=== PATIENT | male | born 1960 | race Asian ===

== ENCOUNTER 2018-12-11 21:54 | Emergency (ER) | payer BC ==
[2018-12-11] MEDS: FLUORESCEIN STRIP RIGHT EYE (22:48)
[2018-12-11] MEDS: TETRACAINE 0.5% 4 ML OPH RIGHT EYE (22:49)
== END 2018-12-11 23:23 | disposition home or self-care (01) ==
LOC: FTE 21:54
DX: S05.01XA Injury of conjunctiva and corneal abrasion without foreign body, right eye, initial encounter (principal); E11.9 Type 2 diabetes mellitus without complications; X58.XXXA Exposure to other specified factors, initial encounter; Y92.9 Unspecified place or not applicable; Z79.82 Long term (current) use of aspirin; Z79.84 Long term (current) use of oral hypoglycemic drugs
CPT/HCPCS: 99283

== ENCOUNTER 2019-07-02 16:20 | Observation (INO) | payer BC ==
[2019-07-02 17:36] LABS: ADD MAN DIFF? NO
[2019-07-02 17:38] LABS: WHITE BLOOD COUNT 6.9 10^3/ul (4.8-10.8)
[2019-07-02 17:38] LABS: BASOPHILS % 0.3 % (0.0-2.0); EOSINOPHILS # 0.2 10^3/ul (0.0-0.5); EOSINOPHILS % 2.6 % (0.0-7.0); HEMATOCRIT 44.3 % (42.0-52.0); HEMOGLOBIN 14.4 g/dl (14.0-18.0); LYMPHOCYTES # 1.8 10^3/ul (0.8-2.9); LYMPHOCYTES % 25.9 % (15.0-51.0); MEAN CORPUSCULAR HEMOGLOBIN 27.5 pg (29.0-33.0); MEAN CORPUSCULAR HGB CONC 32.5 g/dl (32.0-37.0); MEAN CORPUSCULAR VOLUME 84.5 fl (82.0-101.0); MEAN PLATELET VOLUME 10.5 fl (7.4-10.4); MONOCYTE # 0.5 10^3/ul (0.3-0.9); MONOCYTES % 6.8 % (0.0-11.0); NEUTROPHIL # 4.5 10^3/ul (1.6-7.5); NEUTROPHILS % 64.1 % (39.0-77.0); PLATELET COUNT 208 10^3/UL (140-415); RED BLOOD COUNT 5.24 10^6/ul (4.70-6.10); RED CELL DISTRIBUTION WIDTH 12.7 % (11.5-14.5)
[2019-07-02] MEDS: KETOROLAC 15 MG INJ IV (17:39)
[2019-07-02] MEDS: ASPIRIN 81 MG TAB PO (17:39)
[2019-07-02 18:03] LABS: ALANINE AMINOTRANSFERASE 22 IU/L (13-69); ALBUMIN 4.1 g/dl (3.3-4.9); ALBUMIN/GLOBULIN RATIO 1.24; ALKALINE PHOSPHATASE 67 IU/L (42-121); ANION GAP 9 (5-13); ASPARTATE AMINO TRANSFERASE 33 IU/L (15-46); BILIRUBIN,INDIRECT 0.6 mg/dl (0-1.1); BILIRUBIN,TOTAL 0.6 mg/dl (0.2-1.3); BLOOD UREA NITROGEN 12 mg/dl (7-20); CALCIUM 9.6 mg/dl (8.4-10.2); CARBON DIOXIDE 28 mmol/L (21-31); CHLORIDE 99 mmol/L (97-110); CREATININE 0.92 mg/dl (0.61-1.24); Estimated GFR > 60 mL/min (>60); GLUCOSE 269 mg/dl (70-220); LIPASE 126 U/L (23-300); POTASSIUM 4.2 mmol/L (3.5-5.1); SODIUM 136 mmol/L (135-144); TOTAL PROTEIN 7.4 g/dl (6.1-8.1)
[2019-07-02 18:15] LABS: B-TYPE NATRIURETIC PEPTIDE 46 PG/ML (0-125); TROPONIN-I < 0.012 ng/ml (0.000-0.120)
[2019-07-02] MEDS ORDERED: ZOLPIDEM 5 MG TAB PO (21:30)
[2019-07-02] MEDS ORDERED: ONDANSETRON 4 MG INJ IV (22:30)
[2019-07-02] MEDS ORDERED: ACETAMINOPHEN 325 MG TAB PO (22:30)
[2019-07-02] MEDS: METOPROLOL 50 MG TAB PO (22:35)
[2019-07-03 01:27] LABS: TROPONIN-I < 0.012 ng/ml (0.000-0.120)
[2019-07-03 06:50] LABS: TROPONIN-I < 0.012 ng/ml (0.000-0.120)
[2019-07-03] MEDS: ASPIRIN (EC) 81 MG TAB PO (08:36)
[2019-07-03] MEDS: FLUOXETINE 10 MG CAP PO (08:36)
[2019-07-03] MEDS: METOPROLOL 50 MG TAB PO ×2 (08:37→20:39)
[2019-07-03] MEDS ORDERED: GLUCOSE GEL 15 GRAM TUBE BUCCAL (11:30)
[2019-07-03] MEDS ORDERED: DEXTROSE 50% 50 ML SYRINGE IV ×2 (11:30)
[2019-07-03] MEDS ORDERED: GLUCAGON 1 MG INJ IM (11:30)
[2019-07-03] MEDS ORDERED: GLUCOSE GEL 15 GRAM TUBE PO ×2 (11:30)
[2019-07-03] MEDS: INSULIN ASPART [NOVOLOG] 3 ML PEN SC ×4 (12:00→21:10)
[2019-07-03] MEDS: REGADENOSON 0.4 MG/5 ML SYG (15:51)
[2019-07-03] MEDS: LISINOPRIL 20 MG TAB PO (17:31)
[2019-07-03] MEDS: ATORVASTATIN 10 MG TAB PO (20:39)
[2019-07-04] MEDS: INSULIN ASPART [NOVOLOG] 3 ML PEN SC (07:44)
[2019-07-04] MEDS: METOPROLOL 50 MG TAB PO (08:07)
[2019-07-04] MEDS: LISINOPRIL 20 MG TAB PO (08:07)
[2019-07-04] MEDS: FLUOXETINE 10 MG CAP PO (08:08)
[2019-07-04] MEDS: ASPIRIN (EC) 81 MG TAB PO (08:08)
== END 2019-07-04 11:40 | disposition home or self-care (01) ==
LOC: E/R 16:20 → 6WM 20:28
DX: R07.89 Other chest pain (principal); I10 Essential (primary) hypertension; E11.9 Type 2 diabetes mellitus without complications; E78.5 Hyperlipidemia, unspecified; I42.9 Cardiomyopathy, unspecified; Z79.82 Long term (current) use of aspirin; Z79.84 Long term (current) use of oral hypoglycemic drugs; Z85.038 Personal history of other malignant neoplasm of large intestine
CPT/HCPCS: 36415; 71045; 78452; 80053; 82962; 83690; 83880; 84484; 85025; 93005; 93017; 93306; 96374; 99217; 99285-25